=== PATIENT | male | born 1985 | race Caucasian/White ===

== ENCOUNTER 2017-09-25 14:16 | Emergency (ER) | payer OTHER ==
[2017-09-25 14:26] VITALS: BP 142/67; PULSE 61; RESP 18; TEMP 98.2
[2017-09-25] MEDS ORDERED: TOPICAL SKIN ADHESIVE 1 EACH AMP TOPICAL ONE (14:39)
--- NOTE | 2017-09-25 14:42 | ED ---
Wound/Laceration HPI - General Chief Complaint: Wound/Laceration Stated Complaint: Head Lac Time Seen by Provider: 09/25/17 14:28 Source: patient, RN notes reviewed, old records reviewed Mode of arrival: ambulatory Limitations: no limitations - History of Present Illness Initial Comments: 31-year-old male presents emergency Department chief complaint of a laceration over the top of the scalp. Patient reports he stood up and cut the top of his head on a heat register. He reports it was a very sharp superficial cut. Patient states he lost consciousness denies any neck pain. Denies any other symptoms. He reports his tetanus is up-to-date. Patient denies any recent fever, chills, shortness of breath, chest pain, back pain, abdominal pain, nausea vomiting, numbness or tingling, dysuria or hematuria, constipation or diarrhea, headaches or visual changes, or any other current symptoms - Related Data Home Medications Medication Instructions Recorded Confirmed lamoTRIgine [LaMICtal] 100 mg PO DAILY 09/25/17 09/25/17 Allergies Allergy/AdvReac Type Severity Reaction Status Date / Time No Known Allergies Allergy Verified 09/25/17 14:42 Review of Systems ROS Statement: Those systems with pertinent positive or pertinent negative responses have been documented in the HPI. ROS Other: All systems not noted in ROS Statement are negative. Past Medical History Past Medical History: No Reported History History of Any Multi-Drug Resistant Organisms: None Reported Past Surgical History: No Surgical Hx Reported Past Psychological History: No Psychological Hx Reported Smoking Status: Current every day smoker Past Alcohol Use History: None Reported Past Drug Use History: Marijuana General Exam - General Exam Comments Initial Comments: This patient is a 31-year-old male. No acute distress. Limitations: no limitations General appearance: alert, in no apparent distress Head exam: Present: atraumatic, normocephalic, other (Patient has a 3 cm superficial laceration over the top of the scalp. Patient is balding in the area where the laceration occurred.). Absent: normal inspection Eye exam: Present: normal appearance, PERRL, EOMI. Absent: scleral icterus, conjunctival injection, periorbital swelling ENT exam: Present: normal exam, mucous membranes moist Neck exam: Present: normal inspection. Absent: tenderness, meningismus, lymphadenopathy Respiratory exam: Present: normal lung sounds bilaterally. Absent: respiratory distress, wheezes, rales, rhonchi, stridor Cardiovascular Exam: Present: regular rate, normal rhythm, normal heart sounds. Absent: systolic murmur, diastolic murmur, rubs, gallop, clicks Extremities exam: Present: normal inspection, full ROM, normal capillary refill. Absent: tenderness, pedal edema, joint swelling, calf tenderness Back exam: Present: normal inspection Neurological exam: Present: alert, oriented X3, CN II-XII intact Psychiatric exam: Present: normal affect, normal mood Skin exam: Present: warm, dry, intact, normal color. Absent: rash Course Vital Signs 09/25/17 14:23 Temperature 98.2 F Pulse Rate 61 Respiratory 18 Rate Blood Pressure 142/67 O2 Sat by Pulse 100 Oximetry Procedures - Laceration Laceration #1 Indication: laceration Site: scalp Size (cm): 3 Description: linear Depth: simple, single layer Pre-repair: wound explored, irrigated extensively Type of Sutures: other (Dermabond) Patient Tolerated Procedure: well, no complications Medical Decision Making - Medical Decision Making 31-year-old male presents with a laceration over the top of the scalp. He reports that he scraped his head on a heat register. He has a very clean superficial laceration over the top of the scalp. Measures proximal leg 3 cm. I discussed possibility of suture or staple's however the laceration is very superficial able it closed well with simply Dermabond. I irrigated the wound. He is up-to-date on his tetanus. He had no loss consciousness or any neck pain or other symptoms. I discussed wound care instructions. Patient is history plan will comply. Return parameters were discussed. Disposition Clinical Impression: Scalp laceration Disposition: HOME SELF-CARE Condition: Good Instructions: Skin Adhesive Care (ED) Additional Instructions: Patient advised to allow the Dermabond skin glue to follow up on its own. Monitor for any signs of infection including redness swelling or drainage. Return to the emergency department if any alarming signs or symptoms occur. Referrals: Glen Ha III, MD [Primary Care Provider] - 1-2 days Time of Disposition: 14:41
== END 2017-09-25 15:00 | disposition home or self-care (01) ==
LOC: EC 14:16
DX: S01.01XA Laceration without foreign body of scalp, initial encounter (principal); F17.200 Nicotine dependence, unspecified, uncomplicated; Z79.899 Other long term (current) drug therapy; W26.8XXA Contact with other sharp object(s), not elsewhere classified, initial encounter
CPT/HCPCS: 12002; 99283

== ENCOUNTER → 2022-01-03 | Outpatient (CLI) | payer BC ==
--- NOTE | 2022-01-03 09:41 | XR ---
Cervical spine HISTORY: Pain 5 views of the cervical spine Cervical vertebral bodies show preserved height and bone mineralization. Minimal retrolisthesis grade 1 C3-4. Disc spaces and prevertebral soft tissues are normal. Suspect some underlying facet arthropa thy change. IMPRESSION: Suspect some facet arthropathy change.
== END | disposition home or self-care (01) ==
LOC: RADXRMAIN 09:14
PROVIDERS: ATTEND Internal Medicine
DX: M54.2 Cervicalgia (principal)
CPT/HCPCS: 72040